=== PATIENT | female | born 1985 | race Caucasian/White ===

== ENCOUNTER 2019-08-17 05:26 | Inpatient (IN) | payer BC ==
[2019-08-17] MEDS ORDERED: CEFAZOLIN 2 GM in Premix Bag 1 BAG IVPB SCH (05:33)
[2019-08-17] MEDS ORDERED: Promethazine HCl 25 MG/ML VIAL IM PRN ×2 (05:33→07:11)
[2019-08-17] MEDS ORDERED: hydrALAZINE 20 MG/ML VIAL SLOW IVP PRN ×2 (05:33→09:09)
[2019-08-17] MEDS ORDERED: Ondansetron PF 4 MG/2 ML Vial IVP PRN ×3 (05:33→09:09)
[2019-08-17] MEDS ORDERED: Bicitra 30 ML UDCUP PO SCH (05:33)
[2019-08-17] MEDS: Lactated Ringer's 1,000 ML IV SCH ×5 (05:40→22:05)
[2019-08-17 06:05] LABS: Hemoglobin 10.6 g/dL (12.0-16.0); Mean Corpuscular HGB CONC 33.3 g/dL (32.0-36.0); Mean Corpuscular Hemoglobin 26.8 pg (27.0-31.0); Mean Corpuscular Volume 80.4 fL (78.0-98.0); Mean Platelet Volume 7.1 fL (7.4-10.4); Platelet Count 279 thou/uL (130-400); RBC Distribution Width 13.5 % (11.5-14.5); Red Blood Cell (RBC) Count 3.95 mill/uL (4.20-5.40); White Blood Cell (WBC) Count 8.6 thou/uL (4.8-10.8)
[2019-08-17 06:06] VITALS: BMI 37.4
[2019-08-17] MEDS ORDERED: FLU VACC QS2019-20(6MOS UP)/PF 60 MCG/0.5 ML SYRINGE IM ONE (06:15)
[2019-08-17 06:48] LABS: HBSAg Index 0.14 S/CO (0-0.99); Hep B Surf Ag Non-Reactive S/CO (NonReactive); Syphilis Antibody Nonreactive (Nonreactive); Syphilis Antibody Index 0.03 S/CO (<1.00 Non-Reactive)
[2019-08-17] MEDS ORDERED: Naloxone HCl 0.4 mg/ml Vial IV PRN (07:11)
[2019-08-17] MEDS ORDERED: HYDROmorphone 2 MG/ML VIAL SLOW IVP PRN (07:11)
[2019-08-17] MEDS ORDERED: Promethazine HCl 25 MG SUPP PR PRN (07:11)
[2019-08-17] MEDS ORDERED: diphenhydrAMINE 50 MG/ML VIAL IVP PRN (07:11)
[2019-08-17] MEDS ORDERED: Ketorolac Tromethamine 30 MG/ML VIAL IVP PRN (07:11)
[2019-08-17] MEDS ORDERED: Ondansetron HCl/PF 4 MG/2 ML Vial IVP PRN (07:11)
[2019-08-17] MEDS ORDERED: Naloxone HCl 0.4 mg/ml Vial IVP PRN ×2 (07:11)
[2019-08-17] MEDS ORDERED: L&D-Morphine 4 MG/ML VIAL SLOW IVP PRN (07:11)
[2019-08-17] MEDS ORDERED: Meperidine HCl/PF 25 MG/ML VIAL SLOW IVP PRN (07:11)
[2019-08-17] MEDS ORDERED: Communication Order-Pharmacy FS SCH (07:15)
[2019-08-17] MEDS ORDERED: MORPHINE 5 MG/10 ML PF VIAL ONE (07:15)
[2019-08-17] MEDS ORDERED: Ketorolac Tromethamine 30 MG/ML VIAL IVP SCH (07:15)
[2019-08-17] MEDS ORDERED: Oxytocin 10 UNITS/ML VIAL ONE (07:16)
[2019-08-17] MEDS ORDERED: ePHEDrine/0.9% NaCl/PF SYRINGE 50 mg/10 ml ONE (07:16)
[2019-08-17] MEDS ORDERED: Ondansetron PF 4 MG/2 ML Vial ONE (07:16)
[2019-08-17] MEDS ORDERED: Dexamethasone 4 mg/ml Vial ONE (07:16)
[2019-08-17] MEDS ORDERED: Fentanyl 100 MCG/2 ML VIAL ONE ×2 (08:11→08:35)
[2019-08-17] MEDS ORDERED: Midazolam HCl 2 mg/2 ml Vial ONE (08:13)
[2019-08-17] MEDS ORDERED: Ketorolac Tromethamine 30 MG/ML VIAL ONE (08:36)
[2019-08-17] MEDS ORDERED: Bisacodyl 10 MG SUPP PR PRN (09:09)
[2019-08-17] MEDS ORDERED: Acetaminophen 325 MG TAB PO PRN (09:09)
[2019-08-17] MEDS ORDERED: Zolpidem Tartrate 5 MG TAB PO PRN (09:09)
[2019-08-17] MEDS ORDERED: Simethicone Chewable 80 MG TAB PO PRN (09:09)
[2019-08-17] MEDS ORDERED: diphenhydrAMINE 25 MG CAP PO PRN (09:09)
[2019-08-17] MEDS ORDERED: Lanolin Ointment 7 GM TUBE TOP PRN (09:09)
[2019-08-17] MEDS ORDERED: Misoprostol 200 MCG TAB PR PRN (09:09)
[2019-08-17] MEDS ORDERED: Adacel (T-DAP) 0.5 ML SYRINGE IM ONE (09:09)
[2019-08-17] MEDS ORDERED: NS / Oxytocin 40 units/1000ml 1,000 ML IV SCH (09:15)
[2019-08-17] MEDS: Ferrous Sulfate 325 MG TAB PO SCH (17:22)
[2019-08-17] MEDS ORDERED: Meperidine HCl/PF 25 MG/ML VIAL IM PRN (19:15)
[2019-08-17] MEDS ORDERED: HYDROcodone/Acetaminophen 5/325 mg Tablet PO PRN (19:15)
[2019-08-17] MEDS: Docusate Calcium (SURFAK) 240 MG CAP PO SCH (22:05)
[2019-08-17] MEDS ORDERED: Sodium Chloride 0.9% 10 ML ONE (22:16)
[2019-08-18] MEDS: Ibuprofen 800 MG TAB PO SCH ×3 (06:01→21:38)
[2019-08-18 06:03] LABS: Hemoglobin 8.5 g/dL (12.0-16.0); Mean Corpuscular HGB CONC 33.4 g/dL (32.0-36.0); Mean Corpuscular Hemoglobin 26.9 pg (27.0-31.0); Mean Corpuscular Volume 80.5 fL (78.0-98.0); Mean Platelet Volume 7.7 fL (7.4-10.4); Platelet Count 220 thou/uL (130-400); RBC Distribution Width 13.4 % (11.5-14.5); Red Blood Cell (RBC) Count 3.16 mill/uL (4.20-5.40); White Blood Cell (WBC) Count 10.2 thou/uL (4.8-10.8)
[2019-08-18] MEDS: HYDROcodone/Acetaminophen 5/325 mg Tablet PO PRN ×3 (08:26→21:38)
[2019-08-18] MEDS: Ferrous Sulfate 325 MG TAB PO SCH ×2 (08:30→17:17)
[2019-08-18] MEDS: Prenatal Vitamin 1 TAB PO SCH (08:31)
[2019-08-18] MEDS: Docusate Calcium (SURFAK) 240 MG CAP PO SCH ×2 (08:31→21:38)
[2019-08-18] MEDS ORDERED: FLU VACC QS2019-20(6MOS UP)/PF 60 MCG/0.5 ML SYRINGE IM ONE (09:00)
[2019-08-18] MEDS: Lactated Ringer's 1,000 ML IV SCH ×2 (10:34→16:39)
[2019-08-19] MEDS: Lactated Ringer's 1,000 ML IV SCH ×3 (02:52→17:31)
[2019-08-19] MEDS: Ibuprofen 800 MG TAB PO SCH ×3 (06:02→21:23)
[2019-08-19] MEDS: Prenatal Vitamin 1 TAB PO SCH (08:43)
[2019-08-19] MEDS: Docusate Calcium (SURFAK) 240 MG CAP PO SCH ×2 (08:43→21:23)
[2019-08-19] MEDS: Ferrous Sulfate 325 MG TAB PO SCH ×2 (08:43→17:21)
[2019-08-19] MEDS: HYDROcodone/Acetaminophen 5/325 mg Tablet PO PRN (11:39)
--- NOTE | 2019-08-19 18:34 | OP ---
DATE OF PROCEDURE: 08/17/2019 [employer] ROLLING SUPERVISOR SURGEON: Rosalinda Denson MD. CO-SURGEON: Dr. Laura Graham. PREOPERATIVE DIAGNOSIS: 1. Term intrauterine at 39 weeks. 2. Prior section. 3. Declines trial of labor. POSTOPERATIVE DIAGNOSES: 1. Term intrauterine at 39 weeks. 2. Prior section. 3. Declines trial of labor. PROCEDURE PERFORMED: Repeat low-transverse section. ANESTHESIA: Spinal catheterization. FINDINGS: 1. Minimal scarring and adhesions. 2. Normal uterus, tubes, and ovaries. 3. Vigorous female , 7 pounds and 7 ounces, Apgars 8 and 9. COMPLICATIONS: None. BLOOD LOSS: Approximately 500 mL (QBL equal 385 mL). DESCRIPTION OF PROCEDURE: After thorough consent and counseling, Mrs. Randall was taken to the operating room and adequate level of anesthesia was obtained via spinal catheterization. The patient was prepped and draped in the usual sterile fashion for abdominal surgery. A Michel was placed in the bladder, which was noted to be draining clear urine. Team time-out was performed per protocol. A Pfannenstiel incision was made and the old scar was excised. The incision was carried sharply to the fascia, which was also sharply incised. The midline was identified and the rectus muscles were retracted laterally. The abdominal peritoneal cavity was entered with usual safeguard carried out. A retractor was placed and a bladder flap was created on the vesicouterine peritoneum. A bladder blade was then placed. A low-transverse incision was made on the well-developed lower uterine segment. Upon entering the amniotic sac, a copious amount of clear amniotic fluid was visualized. The infant was noted to be in vertex presentation in the occiput anterior position. Head was delivered with the assistance of vacuum secondary to the patient's body habitus and difficult delivery of the vertex. The baby was bulb suctioned on the abdomen. Shoulders and body were then delivered in an atraumatic fashion. The cord was doubly clamped and cut. Infant was handed to the Neonatology Team in attendance for the delivery. The infant was a vigorous viable female, weighing 7 pounds and 7 ounces with Apgars of 8 and 9 obtained at 1 and 5 minutes respectively. Cord blood was obtained. The placenta was manually removed from the uterus. The uterus was exteriorized and good tone was noted. The uterine cavity was cleared of remaining clot and fluid. The low-transverse incision was closed with a running locking ligature of #1 chromic. A second imbricating layer was placed to facilitate strength and hemostasis. The vesicouterine peritoneum was reapproximated with running ligature of 3-0 Monocryl suture. The posterior cul-de-sac and gutters were cleared of clot and fluid. Seprafilm was applied to the low-transverse incision and to the anterior aspect of the uterus for adhesion prevention. The uterus was returned to the abdomen and good tone and hemostasis were again noted. Lap, sponge, and needle counts were correct. The peritoneum was closed with a running ligature of 2-0 Vicryl. Rectus muscles were reapproximated in the midline with interrupted ligatures of 2-0 Vicryl and #1 chromic suture. The fascia was closed with two ligatures of 0 Vicryl, which were tied in the midline. Good fascial integrity was appreciated. The incision was irrigated with copious amount of warm normal saline. The subcutaneous tissue was closed with interrupted ligatures of 2-0 plain. The skin was closed with subcuticular stitch of 4-0 Monocryl and dressed with Dermabond. A pressure dressing and ice packs were subsequently placed. Lap, sponge, and needle counts were correct x3. Estimated blood loss during the surgical procedure was less than 500 mL (QBL equal to 385 mL). The patient was taken to recovery room in good condition. Immediately following the surgery, the patient and family were made aware of the surgical procedure and operative findings. Questions were answered to the patient's satisfaction. Job ID: [id number]
[2019-08-20] MEDS: Lactated Ringer's 1,000 ML IV SCH ×2 (01:34→08:13)
[2019-08-20] MEDS: Ibuprofen 800 MG TAB PO SCH (05:32)
[2019-08-20 07:41] VITALS: BP 112/55; TEMP 98.2
[2019-08-20] MEDS: Prenatal Vitamin 1 TAB PO SCH (08:12)
[2019-08-20] MEDS: Ferrous Sulfate 325 MG TAB PO SCH (08:12)
[2019-08-20] MEDS: Docusate Calcium (SURFAK) 240 MG CAP PO SCH (08:12)
== END 2019-08-20 11:12 | disposition home or self-care (01) | DRG 786 ==
LOC: L&D 05:26 → 3SW 11:20
PROVIDERS: ADMIT Obstetrics & Gynecology; ATTEND Obstetrics & Gynecology
PROC: 10D00Z1 Extraction of Products of Conception, Low, Open Approach (ICD-10-PCS; principal; 2019-08-17)
PROC: 3E02340 Introduction of Influenza Vaccine into Muscle, Percutaneous Approach (ICD-10-PCS; 2019-08-17)
PROC: 3E0234Z Introduction of Serum, Toxoid and Vaccine into Muscle, Percutaneous Approach (ICD-10-PCS; 2019-08-17)
DX: O34.211 Maternal care for low transverse scar from previous cesarean delivery (principal); Z23 Encounter for immunization; O24.32 Unspecified pre-existing diabetes mellitus in childbirth; Z3A.39 39 weeks gestation of pregnancy; E11.9 Type 2 diabetes mellitus without complications; Z37.0 Single live birth; Z88.8 Allergy status to other drugs, medicaments and biological substances
CPT/HCPCS: 36415; 51702; 85027; 86780; 86850; 86900; 86901; 87340; 90471; 90686; G0008; J0131; J0690; J1100; J1885; J2250; J2274; J2405; J2590; J3010

== ENCOUNTER 2020-11-12 16:41 | Emergency (ER) | payer OTHER, SELFPAY | END 2020-11-12 17:21 | disposition home or self-care (01) | LOC: ERS 16:41 | DX: O99.891 Other specified diseases and conditions complicating pregnancy (principal); R10.30 Lower abdominal pain, unspecified; R73.03 Prediabetes; Z3A.32 32 weeks gestation of pregnancy; V59.9XXA Occupant (driver) (passenger) of pick-up truck or van injured in unspecified traffic accident, initial encounter | CPT/HCPCS: 99284 ==

== ENCOUNTER 2020-11-12 17:48 | Observation (INO) | payer OTHER, SELFPAY ==
[2020-11-12 17:58] VITALS: TEMP 98.6
[2020-11-12 18:00] VITALS: BMI 36.6
[2020-11-12] MEDS ORDERED: hydrALAZINE 20 MG/ML VIAL SLOW IVP PRN ×2 (18:42→22:28)
[2020-11-12 18:58] LABS: Amnisure Test No Membranes Rupture (No Rupture)
[2020-11-12 18:59] LABS: Amnisure Internal Control QC ACCEPTABLE (ACCEPTABLE)
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
[2020-11-12] MEDS ORDERED: Ondansetron PF 4 MG/2 ML Vial IVP PRN (22:28)
[2020-11-12] MEDS ORDERED: Zolpidem Tartrate 5 MG TAB PO PRN (22:30)
[2020-11-13 01:17] VITALS: BP 91/44
[2020-11-13] MEDS ORDERED: Acetaminophen 500 MG TAB PO PRN (07:20)
[2020-11-13] MEDS ORDERED: FLU VACC QS2020-21(6MOS UP)/PF 60 MCG/0.5 ML SYRINGE IM ONE (09:00)
== END 2020-11-13 13:30 | disposition home or self-care (01) ==
LOC: L&D/OP 17:48 → L&D 11-13 07:28
PROVIDERS: ADMIT Obstetrics & Gynecology; ATTEND Obstetrics & Gynecology
DX: O47.03 False labor before 37 completed weeks of gestation, third trimester (principal); O99.891 Other specified diseases and conditions complicating pregnancy; M54.5 Low back pain; R10.2 Pelvic and perineal pain; N89.8 Other specified noninflammatory disorders of vagina; Z3A.32 32 weeks gestation of pregnancy; Z87.891 Personal history of nicotine dependence; Z88.8 Allergy status to other drugs, medicaments and biological substances; V49.50XA Passenger injured in collision with unspecified motor vehicles in traffic accident, initial encounter; Y92.410 Unspecified street and highway as the place of occurrence of the external cause
CPT/HCPCS: 36416; 84112; G0378